=== PATIENT | female | born 1970 | race American Indian/Alaskan Native ===

== ENCOUNTER 2017-08-27 13:17 | Emergency (ER) | payer MEDICAID ==
[2017-08-27 13:47] VITALS: BMI 29.8
--- NOTE | 2017-08-27 14:12 | ED PDOC ---
Arrival/HPI - General Chief Complaint: Lower Extremity Problem/Injury Time Seen by Provider: 08/27/17 13:46 Historian: Patient - History of Present Illness Narrative History of Present Illness (Text): 08/27/17 14:09 46yo female with no pmhx who present with complaint of left ankle pain/swelling s/p trauma 3days ago. States she twisted her ankle 3days ago while walking. Notes that she was applying ice and elevating the ankle without relieve. She did not take any pain medication. Able to ambulate with pain. Denies any other complaint. Past Medical History - Provider Review Nursing Documentation Reviewed: Yes - Infectious Disease Hx of Infectious Diseases: None - Reproductive Menopause: No - Psychiatric Hx Substance Use: No - Anesthesia Hx Anesthesia: No Family/Social History - Physician Review Nursing Documentation Reviewed: Yes Family/Social History: Unknown Family HX Smoking Status: Unknown If Ever Smoked Hx Alcohol Use: No Hx Substance Use: No Allergies/Home Meds Allergies/Adverse Reactions: Allergies No Known Allergies Allergy (Verified 08/27/17 13:47) Review of Systems - Physician Review All systems were reviewed & negative as marked: Yes - Review of Systems Constitutional: Normal Eyes: Normal ENT: Normal Respiratory: Normal Cardiovascular: Normal Gastrointestinal: Normal Genitourinary Female: Normal Musculoskeletal: Arthralgias (Left ankle pain) Skin: Normal Neurological: Normal Endocrine: Normal Hemo/Lymphatic: Normal Psychiatric: Normal Physical Exam Vital Signs Reviewed: Yes Vital Signs Temp Pulse Resp BP Pulse Ox 08/27/17 15:40 98.9 F 72 18 157/89 H 99 08/27/17 13:55 98.9 F 72 18 157/89 H 99 Temperature: Afebrile Blood Pressure: Normal Pulse: Regular Respiratory Rate: Normal Appearance: Positive for: Well-Appearing, Non-Toxic, Comfortable Pain Distress: None Mental Status: Positive for: Alert and Oriented X 3 - Systems Exam Head: Present: Atraumatic, Normocephalic Pupils: Present: PERRL Extroacular Muscles: Present: EOMI Conjunctiva: Present: Normal Mouth: Present: Moist Mucous Membranes Neck: Present: Normal Range of Motion Respiratory/Chest: Present: Clear to Auscultation, Good Air Exchange. No: Respiratory Distress, Accessory Muscle Use Cardiovascular: Present: Regular Rate and Rhythm, Normal S1, S2. No: Murmurs Abdomen: No: Tenderness, Distention, Peritoneal Signs Back: Present: Normal Inspection Upper Extremity: Present: Normal Inspection. No: Cyanosis, Edema Lower Extremity: Present: NORMAL PULSES, Normal ROM, Tenderness (Diffuse left ankle), Swelling (Left ankle), Neurovascularly Intact. No: Edema, Deformity Neurological: Present: GCS=15, CN II-XII Intact, Speech Normal Skin: Present: Warm, Dry, Normal Color. No: Rashes Psychiatric: Present: Alert, Oriented x 3, Normal Insight, Normal Concentration Medical Decision Making ED Course and Treatment: 08/27/17 14:44 Pt in ED for stated history 08/27/17 20:16 Left ankle xray BONES: There is an acute oblique nondisplaced fracture in the lateral malleolus. Bone alignment and mineralization are normal. JOINTS: There is a small joint effusion. Ankle mortise maintained. Talar dome intact SOFT TISSUES: There is moderate lateral soft tissue swelling. OTHER FINDINGS: None. IMPRESSION: Acute oblique nondisplaced fracture in the lateral malleolus, small joint effusion and moderate lateral soft tissue swelling. Result was DW the pt. Posterior splint placed and crutches was given to pt. she was DC home with ibuprofen 600mg rx and referred to ortho. - RAD Interpretation Radiology Orders: 08/27/17 13:47 ANKLE LEFT 3 VIEWS ROUTINE [RAD] Stat - Medication Orders Current Medication Orders: Discontinued Medications Ibuprofen (Motrin Tab) 600 mg PO STAT STA Stop: 08/27/17 13:48 Last Admin: 08/27/17 14:07 Dose: 600 mg MAR Pain/Vitals Document 08/27/17 14:07 HARISH (Rec: 08/27/17 14:08 [id number]) Pain Reassessment Is This A Pain ReAssessment? Yes Presence of Pain Presence of Pain Yes Pain Scale Used Pain Scale Used Numeric Location Left, Right or Bilateral Left Pain Location Body Site Ankle Intensity 8 Scale Used Numeric Disposition/Present on Arrival - Present on Arrival Any Indicators Present on Arrival: No History of DVT/PE: No History of Uncontrolled Diabetes: No Urinary Catheter: No History of Decub. Ulcer: No History Surgical Site Infection Following: None - Disposition Have Diagnosis and Disposition been Completed?: Yes Diagnosis: Ankle fracture Disposition: HOME/ ROUTINE Disposition Time: 14:50 Patient Plan: Discharge Condition: STABLE Discharge Instructions (ExitCare): Ankle Fracture (DC) Additional Instructions: Follow up with orthopedist Return to ED for any new or worsening symptoms Prescriptions: Ibuprofen [Motrin Tab] 600 mg PO Q6 #15 tab Referrals: Katia Burgess [Primary Care Provider] - Follow up with primary Tejinder Rivero DO [Staff Provider] - Follow up with primary Forms: [facility] (Nepali), WORK NOTE
[2017-08-27 14:23] VITALS: BP 157/89; PULSE 72; RESP 18; TEMP 98.9; O2SAT 99
--- NOTE | 2017-08-27 14:40 | RAD ---
Date of service: 08/27/2017 PROCEDURE: Left Ankle Radiographs. HISTORY: ankle pain s/p trauma COMPARISON: None FINDINGS: BONES: There is an acute oblique nondisplaced fracture in the lateral malleolus. Bone alignment and mineralization are normal. JOINTS: There is a small joint effusion. Ankle mortise maintained. Talar dome intact SOFT TISSUES: There is moderate lateral soft tissue swelling. OTHER FINDINGS: None. IMPRESSION: Acute oblique nondisplaced fracture in the lateral malleolus, small joint effusion and moderate lateral soft tissue swelling.
== END 2017-08-27 15:40 | disposition home or self-care (01) ==
LOC: ED 13:17 → MERGE 13:17 → ED 15:40
DX: S82.65XA Nondisplaced fracture of lateral malleolus of left fibula, initial encounter for closed fracture (principal); X50.1XXA Overexertion from prolonged static or awkward postures, initial encounter; Y93.01 Activity, walking, marching and hiking; Y92.9 Unspecified place or not applicable